=== PATIENT | female | born 1995 | race Caucasian/White ===

== ENCOUNTER 2016-07-28 11:53 | Emergency (ER) | payer BC ==
[2016-07-28 12:56] LABS: COLOR YELLOW; LEUKOCYTE ESTERASE,URINE NEGATIVE (NEGATIVE); NITRITE,URINE NEGATIVE (NEGATIVE)
[2016-07-28 12:59] LABS: MUCUS TRACE /lpf (NONE-1+)
--- NOTE | 2016-07-28 13:08 | EDPHY ---
H & P Stated Complaint: Intermittent left neck pain, chest pain, SOB for 2 weeks. Time Seen by Provider: 07/28/16 12:37 HPI/ROS: CHIEF COMPLAINT: Left upper quadrant abdominal and left lower rib pain HISTORY OF PRESENT ILLNESS: 21-year-old female history of oral contraceptive use, smokes cigarettes on a weekly basis, complaining of flu-like symptoms for weeks ago which resolved however for the past 2 weeks she has been experiencing dyspnea, pleuritic left-sided chest pain, today started complaining of more localized left lower rib/left upper quadrant abdominal pain with continued complaints of dyspnea. No syncope or near syncope. No peripheral edema. Patient is concerned about pulmonary embolus. PRIMARY CARE PROVIDER: Surinder REVIEW OF SYSTEMS: A ten point review of systems was performed and is negative with the exception of the items mentioned in the HPI PAST MEDICAL & SURGICAL HISTORY: Daily oral contraceptive use. SOCIAL HISTORY: [employer] Student. Regular cigarette use PHYSICAL EXAM (Prior to examination, patient consented to physical exam, hands were washed and my usual and customary physical exam procedures followed) 1) GENERAL: Well-developed, well-nourished, alert and oriented. Appears anxious. Speaking full sentences 2) HEAD: Normocephalic, atraumatic 3) HEENT: Pupils equal, round, reactive to light bilaterally. Sclera anicteric. 4) NECK: Full range of motion, no meningeal signs. 5) LUNGS: Clear auscultation bilaterally, no wheezes, no rhonchi, no retractions. 6) HEART: Regular rate and rhythm, no murmur, no heave, no gallop. 7) ABDOMEN: No guarding, tender to palpation epigastrium and left upper quadrant , no rebound, no focal tenderness, negative McBurney's, negative Solis's, negative Rovsing's, negative peritoneal sign, 8) MUSCULOSKELETAL: Moving all extremities, no focal areas of tenderness, no obvious trauma. No peripheral edema or discoloration. Negative Homans no palpable cord 9) BACK: No CVA tenderness, no midline vertebral tenderness, no fluctuance, no step-off, no obvious trauma, no visual or palpable abnormality. 10) SKIN: No rash, no petechiae. 11) Psychiatric: Patient is oriented X 3, there is no agitation. DIFFERENTIAL DIAGNOSIS: in no particular order including but limited to pancreatitis, splenomegaly, lower lobe pneumonia, pulmonary embolus, peptic ulcer disease - Personal History LMP (Females 10-55): 1-7 Days Ago Current Tetanus Diphtheria and Acellular Pertussis (TDAP): Yes Tetanus Vaccine Date: within last 10 years - Medical/Surgical History Hx Asthma: No Hx Chronic Respiratory Disease: No Hx Diabetes: No Hx Cardiac Disease: No Hx Renal Disease: No Hx Cirrhosis: No Hx Alcoholism: No Hx HIV/AIDS: No Hx Splenectomy or Spleen Trauma: No Other PMH: polycystic ovarian disease, kidney stones, appy 09/14/14 - Social History Smoking Status: Current some day smoker Constitutional: Initial Vital Signs Temperature (C) 36.4 C 07/28/16 11:59 Heart Rate 107 H 07/28/16 11:59 Respiratory Rate 18 07/28/16 11:59 Blood Pressure 149/90 H 07/28/16 11:59 O2 Sat (%) 98 07/28/16 11:59 O2 Delivery Mode Room Air Allergies/Adverse Reactions: [place] Allergy (Verified 02/10/16 12:55) Home Medications: Medication Instructions Recorded VYVANSE 02/10/16 Amphetamine 07/28/16 Pantoprazole Sodium [Protonix 40mg 40 mg PO DAILY #30 tab 07/28/16 (RX)] Medical Decision Making - Diagnostics Imaging: CT Chest Angiogram Comparison: 14 Sep 2014 Indication: Chest pain. Evaluate for pulmonary embolus. Technique: Thinly collimated multidetector helical CT imaging was performed through the chest while 80 mL of Isovue-370 were injected intravenously without complication. The images were then transferred to an independent workstation where multiplanar reconstructions were performed. Dose reduction techniques were utilized. Findings: CT Chest Angiogram: The pulmonary arterial system is well opacified. No intraluminal filling defects to suggest acute or chronic thrombopulmonary embolic disease. The thoracic aorta is normal caliber. No aneurysm or dissection. CT Chest: The lungs are clear. No pulmonary nodule, mass, or enlarged lymph nodes. Heart size is normal. No pericardial or pleural effusion. The imaged portion of the upper abdomen is negative. Impression: 1. No evidence of thrombopulmonary embolic disease. 2. No evidence for acute cardiopulmonary abnormality. Results called and discussed with Philippe Hunt PA-C at 07/28/2016 14:37. Dictated By: Edwin Villalpando MD Images reviewed by myself ED Course/Re-evaluation: 1:45 p.m.: We discussed her negative D-dimer however given her history of pleuritic chest pain, dyspnea, exogenous estrogen use, cigarette use, expressed the patient my concern over possible pulmonary embolus. Indications risks benefits discussed with patient she verbalized consent. 2:30 p.m.: This patient was re-evaluated with serial examinations, most recent at this time. Discussed with the patient her negative CT scan showing no pulmonary emboli. Discussed her elevated lipase of 414. She notes an increase in alcohol use over the past several days as it is currently spring. She is tolerating oral intake. Do not think that admission for acute pancreatitis is indicated at this time however I did recommend alcohol cessation and follow up with primary care and gastroenterology. Definitely in the meantime should she develop new or worsening abdominal pain, should she develop inability to tolerate oral intake baig is to return to the emergency department immediately for re-evaluation. Doubt acute surgical abdominal pathology such as acute cholecystitis, acute appendicitis as she is no pain in the right upper quadrant or right lower quadrant no peritoneal sign on initial and on serial exams. She feels comfortable with this plan. - Data Points Laboratory Results: Laboratory Results 07/28/16 13:00 07/28/16 13:00 07/28/16 07/28/16 07/28/16 13:00 13:00 13:00 WBC RBC Hgb Hct MCV MCH MCHC RDW Plt Count MPV Neut % (Auto) Lymph % (Auto) [place] % (Auto) Eos % (Auto) Baso % (Auto) Nucleat RBC Rel Count Absolute Neuts (auto) Absolute Lymphs (auto) Absolute Monos (auto) Absolute Eos (auto) Absolute Basos (auto) Absolute Nucleated RBC Immature Gran % Immature Gran # D-Dimer < 0.27 ug/mLFEU ug/mLFEU (0.00-0.50) Sodium 138 mEq/L mEq/L (134-144) Potassium 4.2 mEq/L mEq/L (3.5-5.2) Chloride 101 mEq/L mEq/L (97-110) Carbon Dioxide 23 mEq/l mEq/l (22-31) Anion Gap 14 mEq/L mEq/L (8-16) BUN 16 mg/dL mg/dL (7-23) Creatinine 0.8 mg/dL mg/dL (0.6-1.0) Estimated GFR > 60 Glucose 76 mg/dL mg/dL (70-100) Calcium 10.1 mg/dL mg/dL (8.5-10.4) Total Bilirubin 1.3 mg/dL mg/dL (0.1-1.4) Conjugated Bilirubin 0.4 mg/dL mg/dL (0.0-0.5) Unconjugated Bilirubin 0.9 mg/dL mg/dL (0.0-1.1) AST 27 IU/L IU/L (14-46) ALT 31 IU/L IU/L (9-52) Alkaline Phosphatase 58 IU/L IU/L (38-126) Total Protein 9.1 g/dL H g/dL (6.3-8.2) Albumin 5.2 g/dL H g/dL (3.5-5.0) Lipase 414.0 IU/L H IU/L (23-300) Beta HCG, Qual NEGATIVE Urine Color Urine Appearance Urine pH Ur Specific [place] Urine Protein Urine Ketones Urine Blood Urine Nitrate Urine Bilirubin Urine Urobilinogen Ur Leukocyte Esterase Urine RBC Urine WBC Ur Epithelial Cells Ur Renal Epithelial Cell Urine Crystals Ammonium Urate Crystals Calcium Carbonate Cryst Calcium Phosphate Cryst Calcium Oxalate Crystal Leucine Crystals Cystine Crystals Uric Acid Crystals Triple Phos Crystals Sulfonamide Crystals Cholesterol Crystals Tyrosine Crystals Bilirubin Crystals Amorphous Sediment Urine Bacteria Epithelial Casts Fatty Casts Hyaline Casts Granular Casts Waxy Casts Broad Casts RBC Casts WBC Casts Urine Mucus Urine Trichomonas Urine Yeast Urine Sperm Ur Oval Fat Bodies Ur Free Fat Droplets Urine Glucose Urine Comment 07/28/16 07/28/16 07/28/16 13:00 12:40 12:40 WBC 5.89 10^3/uL 10^3/uL (3.80-9.50) RBC 5.01 10^6/uL 10^6/uL (4.18-5.33) Hgb 15.8 g/dL g/dL (12.6-16.3) Hct 45.4 % % (38.0-47.0) MCV 90.6 fL fL (81.5-99.8) MCH 31.5 pg pg (27.9-34.1) MCHC 34.8 g/dL g/dL (32.4-36.7) RDW 11.6 % % (11.5-15.2) Plt Count 180 10^3/uL 10^3/uL (150-400) MPV 12.0 fL H fL (8.7-11.7) Neut % (Auto) 58.4 % % (39.3-74.2) Lymph % (Auto) 33.1 % % (15.0-45.0) [place] % (Auto) 5.8 % % (4.5-13.0) Eos % (Auto) 1.9 % % (0.6-7.6) Baso % (Auto) 0.5 % % (0.3-1.7) Nucleat RBC Rel Count 0.0 % % (0.0-0.2) Absolute Neuts (auto) 3.44 10^3/uL 10^3/uL (1.70-6.50) Absolute Lymphs (auto) 1.95 10^3/uL 10^3/uL (1.00-3.00) Absolute Monos (auto) 0.34 10^3/uL 10^3/uL (0.30-0.80) Absolute Eos (auto) 0.11 10^3/uL 10^3/uL (0.03-0.40) Absolute Basos (auto) 0.03 10^3/uL 10^3/uL (0.02-0.10) Absolute Nucleated RBC 0.00 10^3/uL 10^3/uL (0-0.01) Immature Gran % 0.3 % % (0.0-1.1) Immature Gran # 0.02 10^3/uL 10^3/uL (0.00-0.10) D-Dimer Sodium Potassium Chloride Carbon Dioxide Anion Gap BUN Creatinine Estimated GFR Glucose Calcium Total Bilirubin Conjugated Bilirubin Unconjugated Bilirubin AST ALT Alkaline Phosphatase Total Protein Albumin Lipase Beta HCG, Qual Urine Color YELLOW Urine Appearance CLEAR Urine pH 6.0 (5.0-7.5) Ur Specific [place] 1.019 (1.002-1.030) Urine Protein NEGATIVE (NEGATIVE) Urine Ketones TRACE H (NEGATIVE) Urine Blood NEGATIVE (NEGATIVE) Urine Nitrate NEGATIVE (NEGATIVE) Urine Bilirubin NEGATIVE (NEGATIVE) Urine Urobilinogen NEGATIVE EU EU (0.2-1.0) Ur Leukocyte Esterase NEGATIVE (NEGATIVE) Urine RBC Cancelled 3-5 /hpf H /hpf (0-3) Urine WBC Cancelled 1-3 /hpf /hpf (0-3) Ur Epithelial Cells Cancelled TRACE /lpf /lpf (NONE-1+) Ur Renal Epithelial Cell Cancelled Urine Crystals Cancelled Ammonium Urate Crystals Cancelled Calcium Carbonate Cryst Cancelled Calcium Phosphate Cryst Cancelled Calcium Oxalate Crystal Cancelled Leucine Crystals Cancelled Cystine Crystals Cancelled Uric Acid Crystals Cancelled Triple Phos Crystals Cancelled Sulfonamide Crystals Cancelled Cholesterol Crystals Cancelled Tyrosine Crystals Cancelled Bilirubin Crystals Cancelled Amorphous Sediment Cancelled Urine Bacteria Cancelled Epithelial Casts Cancelled Fatty Casts Cancelled Hyaline Casts Cancelled Granular Casts Cancelled Waxy Casts Cancelled Broad Casts Cancelled RBC Casts Cancelled WBC Casts Cancelled Urine Mucus Cancelled TRACE /lpf /lpf (NONE-1+) Urine Trichomonas Cancelled Urine Yeast Cancelled Urine Sperm Cancelled Ur Oval Fat Bodies Cancelled Ur Free Fat Droplets Cancelled Urine Glucose NEGATIVE (NEGATIVE) Urine Comment Cancelled Medications Given: Discontinued Medications Al Hydroxide/Mg Hydroxide (Maalox Susp) 30 ml PO ONCE ONE Stop: 07/28/16 14:54 Last Admin: 07/28/16 15:18 Dose: 30 ml Hyoscyamine Sulfate (Levsin, Hyomax-Sl) 0.25 mg PO ONCE ONE Stop: 07/28/16 14:54 Last Admin: 07/28/16 15:18 Dose: 0.25 mg Lidocaine (Lidocaine 2% Viscous) 15 ml PO ONCE ONE Stop: 07/28/16 14:54 Last Admin: 07/28/16 15:18 Dose: 15 ml Morphine Sulfate (Morphine) 4 mg IVP EDNOW ONE Stop: 07/28/16 13:51 Last Admin: 07/28/16 14:32 Dose: 4 mg Departure - Departure Disposition: Home, Routine, Self-Care Clinical Impression: Elevated lipase, Epigastric abdominal pain Condition: Good Instructions: Pancreatitis (ED), Epigastric Pain (ED) Additional Instructions: Seek immediate medical attention if you develop new or worsening symptoms, if you develop fevers, chills, inability to tolerate oral intake or any other symptoms that concerns you. Your lipase level was elevated today which may be result of increase in alcohol use. Temporarily Stop drinking alcohol and exercise caution and moderation in the future. Recommend you recheck your lipase level as directed in the discharge instructions . If at any point you are unable to tolerate oral intake you need to return to the ER immediately for re-evaluation Referrals: SURINDER Minaya,. [Clinic] - 1-2 days without fail (Your lipase blood test was elevated today at 414. Recommend temporary cessation and future with alcohol and retesting of your lipase level.) Tim Womack MD [Medical Doctor] - 5-7 days, call for appt. (Dr. Tim Womack is a furniture repairer) Prescriptions: Pantoprazole Sodium [Protonix 40mg (RX)] 40 mg PO DAILY #30 tab
[2016-07-28 13:16] LABS: % IMMATURE GRANULYOCYTES 0.3 % (0.0-1.1); ABSOLUTE IMMATURE GRANULOCYTES 0.02 10^3/uL (0.00-0.10); ADD DIFF? NO; ADD MORPH? NO; ADD SCAN? NO; ATYPICAL LYMPHOCYTE FLAG 30 (0-99); FRAGMENT RBC FLAG 0 (0-99); HEMATOCRIT 45.4 % (38.0-47.0); HEMOGLOBIN 15.8 g/dL (12.6-16.3); LEFT SHIFT FLG 0 (0-99); LIPEMIA HEMOLYSIS FLAG 90 (0-99); MEAN CELL HEMOGLOBIN 31.5 pg (27.9-34.1); MEAN CELL HEMOGLOBIN CONCENTR. 34.8 g/dL (32.4-36.7); MEAN CELL VOLUME 90.6 fL (81.5-99.8); PLATELET CLUMPS FLAG 0 (0-99); PLATELET COUNT 180 10^3/uL (150-400); RED BLOOD CELL COUNT 5.01 10^6/uL (4.18-5.33); RED CELL DISTRIBUTION WIDTH 11.6 % (11.5-15.2)
[2016-07-28 13:29] LABS: ALANINE AMINOTRANSFERASE 31 IU/L (9-52); ALBUMIN 5.2 g/dL (3.5-5.0); ALKALINE PHOSPHATASE 58 IU/L (38-126); ANION GAP 14 mEq/L (8-16); ASPARTATE AMINOTRANSFERASE 27 IU/L (14-46); BILIRUBIN,TOTAL 1.3 mg/dL (0.1-1.4); BILIRUBIN-CONJUGATED 0.4 mg/dL (0.0-0.5); BILIRUBIN-UNCONJUGATED 0.9 mg/dL (0.0-1.1); CALCIUM 10.1 mg/dL (8.5-10.4); CARBON DIOXIDE 23 mEq/l (22-31); CHLORIDE 101 mEq/L (97-110); CREATININE 0.8 mg/dL (0.6-1.0); GLOMERULAR FILTRATION RATE > 60; GLUCOSE 76 mg/dL (70-100); POTASSIUM 4.2 mEq/L (3.5-5.2); SODIUM 138 mEq/L (134-144); TOTAL PROTEIN 9.1 g/dL (6.3-8.2)
[2016-07-28] MEDS ORDERED: IOPAMIDOL (ISOVUE 370) 100 ML BTL IV ONE (13:54)
[2016-07-28 14:34] VITALS: O2SAT 99
[2016-07-28] MEDS ORDERED: MAG HYDROX/AL HYDROX/SIMETH 30 ML UDCUP PO ONE (14:53)
[2016-07-28] MEDS ORDERED: LIDOCAINE 2% VISCOUS 15 ML UDCUP PO ONE (14:53)
[2016-07-28] MEDS ORDERED: HYOSCYAMINE SULFATE 0.125 MG TAB PO ONE (14:53)
[2016-07-28 15:58] VITALS: BP 110/67; PULSE 66; RESP 16; TEMP 98.4
== END 2016-07-28 15:58 | disposition home or self-care (01) ==
DX: R10.13 Epigastric pain (principal); R74.8 Abnormal levels of other serum enzymes; F17.200 Nicotine dependence, unspecified, uncomplicated
CPT/HCPCS: 96374; Q9967

== ENCOUNTER 2018-02-08 13:57 | Emergency (ER) | payer BC ==
--- NOTE | 2018-02-08 14:35 | EDPHY ---
H & P Time Seen by Provider: 02/08/18 14:26 HPI/ROS: HPI Abdominal pain, constipation. 22-year-old female by private vehicle. She reports that she has had constipation for the last 2 weeks in no significant bowel movement at that time. She reports intermittent pellets of with diarrhea. She reports worsening right and mid lower abdominal pain ongoing for about a week now. She has had an appendectomy in the past. She denies urinary tract infection symptoms but has had a history of frequent urinary tract infections. Last menstrual period ended about a week ago. She describes the pain as intermittent and cramping to the area noted above. No vomiting. No bloody or melenic stool. ROS: Constitutional: No fever, no chills. No weakness. Respiratory: No cough. No shortness of breath. Cardiac: No chest pain, no palpitations. Gastrointestinal: As above, no vomiting. Genitourinary: No hematuria. No dysuria or increased frequency with urination. No vaginal bleeding. No vaginal discharge. Musculoskeletal: No back pain. No neck pain. No myalgias or arthralgias. Skin: No rashes. Neurological: No headache. No focal weakness or altered sensation. Past medical history: Polycystic ovarian disease, kidney stones, appendectomy, depression, attention deficit hyperactivity disorder. Social history: Nonsmoker. No alcohol. She is a student [employer]. Here by herself. Physical Exam: General Appearance: Alert, no distress. This patient is responding to questions appropriately and in full sentences. This patient appears well- hydrated and well-nourished. Eyes: Pupils equal and round no pallor or injection. No lid edema, erythema or injection. Respiratory: There are no retractions, lungs are clear to auscultation with good air movement bilaterally. Cardiovascular: Regular rate and rhythm. No murmur. Gastrointestinal: Abdomen is soft and without significant tenderness on deep palpation throughout, no masses, bowel sounds normal. No focal tenderness at McBurney's point. No Solis sign. Neurological: Motor sensory function is grossly intact. Cranial nerves are normal. Gait is normal. Skin: Warm and dry, no rashes. Musculoskeletal: Neck is supple and nontender. Extremities are symmetrical. All joints range without pain or impingement. Psychiatric: No agitation. No depression. Database: EKG: Imaging: Upright abdominal x-ray: Significant for constipation. No free air. No obstructive pattern noted. Interpreted by me. Procedures: Emergency department course: Triage vital signs reviewed and are normal. Patient's presentation is consistent with constipation. Upright abdominal x-ray and urinalysis and urine to be obtained. 3:00 p.m., the patient was re-evaluated. Resting comfortably at this time. Repeat abdominal exam she is soft, nontender nondistended. Results of her x- ray discussed. I discussed treatment options for constipation. At this time I will send her home with magnesium citrate. If she does not have success with this I will also write her a prescription for a 1/2 prep of GoLYTELY in addition. She has been instructed to follow up with her primary care physician for re-evaluation in 1-2 days. Return to emergency department precautions were thoroughly reviewed with her. All of her questions were answered. She was discharged from the emergency department in good condition. Differential Diagnosis: The differential diagnosis on this patient includes but is not limited to constipation. Appendicitis, ovarian torsion, bowel obstruction, volvulus, ruptured ovarian cyst, ectopic , urinary tract infection unlikely. This represents a partial list of diagnoses considered. These considerations are based on history, physical exam, past history, reassessment and diagnostic testing. Smoking Status: Current some day smoker Constitutional: Initial Vital Signs Temperature (C) 37.0 C 02/08/18 14:15 Heart Rate 95 02/08/18 14:15 Respiratory Rate 18 02/08/18 14:15 Blood Pressure 115/86 H 02/08/18 14:15 O2 Sat (%) 99 02/08/18 14:15 O2 Delivery Mode Room Air Allergies/Adverse Reactions: [place] Allergy (Verified 02/08/18 14:14) Home Medications: Medication Instructions Recorded VYVANSE 02/10/16 Amphetamine 07/28/16 Pantoprazole Sodium [Protonix 40mg 40 mg PO DAILY #30 tab 07/28/16 (RX)] Peg 3350/Na Sulf,Bicarb,Cl/KCl 4,000 ml PO ONCE #1 btl 02/08/18 [Golytely (RX)] Wellbutrin Sr 02/08/18 Medical Decision Making - Diagnostics Imaging Results: Imaging Impressions Abdomen X-Ray 02/08/18 14:31 Impression: Constipation. - Data Points Medications Given: Discontinued Medications Magnesium Citrate (Magnesium Citrate) 300 ml PO ONCE ONE Stop: 02/08/18 15:14 Last Admin: 02/08/18 15:18 Dose: 300 ml Departure - Departure Disposition: Home, Routine, Self-Care Clinical Impression: Constipation Condition: Good Instructions: Constipation (ED), High Fiber Diet (ED) Additional Instructions: Read and follow provided instructions. Follow-up with your primary care physician in 1-2 days for re-evaluation. Take medication as prescribed. Drink contents at home near a bathroom. 1/2 GoLYTELY prep to be reserved in case you do not have significant results with magnesium citrate which was given to you in the emergency department. Return to the emergency department for worsening symptoms, vomiting, fever, worsening abdominal pain or other serious concerns. Referrals: FRANCO BRIAN [Primary Care Provider] - As per Instructions Prescriptions: Peg 3350/Na Sulf,Bicarb,Cl/KCl [Golytely (RX)] 4,000 ml PO ONCE #1 btl
[2018-02-08] MEDS ORDERED: MAGNESIUM CITRATE 300 ML BOTTLE PO ONE (15:13)
[2018-02-08 15:23] VITALS: BP 123/66
== END 2018-02-08 15:21 | disposition home or self-care (01) ==
DX: K59.00 Constipation, unspecified (principal); Z87.442 Personal history of urinary calculi; Z87.42 Personal history of other diseases of the female genital tract; Q42.3 Congenital absence, atresia and stenosis of anus without fistula

== ENCOUNTER 2018-04-11 12:17 | Emergency (ER) | payer BC ==
[2018-04-11 12:27] VITALS: BP 137/80
== END 2018-04-11 12:40 | disposition left against medical advice (07) ==
DX: Z53.21 Procedure and treatment not carried out due to patient leaving prior to being seen by health care provider (principal)

== ENCOUNTER 2018-07-17 02:40 | Emergency (ER) | payer BC ==
[2018-07-17] MEDS ORDERED: NS 1,000 ML IV ONE ×3 (02:50→04:01)
[2018-07-17] MEDS ORDERED: ONDANSETRON 4 MG/2 ML VIAL IVP ONE ×2 (02:50→03:59)
[2018-07-17 03:09] LABS: PLATELET COUNT 209 10^3/uL (150-400)
--- NOTE | 2018-07-17 03:58 | EDPHY ---
H & P Stated Complaint: NVD Time Seen by Provider: 07/17/18 03:55 HPI/ROS: HPI The patient presents with nausea, vomiting, diarrhea which began this morning at about 2:00 a.m.. When she went to bed last night she was feeling well. She awoke early this morning with nausea which was then followed by multiple episodes of nonbloody nonbilious emesis. She then had several episodes of watery diarrhea. She is also complaining of chills. She walked to the bathroom to throw up and became lightheaded and had an episode of dizziness though did not lose consciousness completely. Her boyfriend had a similar illness recently. A friend was in the emergency department yesterday and diagnosed with viral gastroenteritis.. REVIEW OF SYSTEMS 10 systems were reviewed and negative with the exception of the elements mentioned in the history of present illness. PMHx: PCOS, status post appendectomy in 2014 Soc Hx: Here with her boyfriend, nonsmoker PHYSICAL General Appearance: Alert, no distress Eyes: Pupils equal and round no pallor or injection ENT, Mouth: Mucous membranes moist Respiratory: There are no retractions, lungs are clear to auscultation Cardiovascular: Regular rate and rhythm Gastrointestinal: Abdomen is soft and non-tender, no masses, bowel sounds normal Neurological: A&O, moves all extremities Skin: Warm and dry, no rashes Musculoskeletal: Neck is supple non tender Extremities: symmetrical, full range of motion Psychiatric: Patient is oriented X 3, there is no agitation Source: Patient Exam Limitations: No limitations - Personal History LMP (Females 10-55): 8-14 Days Ago Current Tetanus Diphtheria and Acellular Pertussis (TDAP): Yes Tetanus Vaccine Date: within last 10 years - Medical/Surgical History Hx Asthma: No Hx Chronic Respiratory Disease: No Hx Diabetes: No Hx Cardiac Disease: No Hx Renal Disease: No Hx Cirrhosis: No Hx Alcoholism: No Hx HIV/AIDS: No Hx Splenectomy or Spleen Trauma: No Other PMH: polycystic ovarian disease, kidney stones, appy 09/14/14. depression - Social History Smoking Status: Current some day smoker Constitutional: Initial Vital Signs Temperature (C) 35.5 C L 07/17/18 02:47 Heart Rate 104 H 07/17/18 02:47 Respiratory Rate 18 07/17/18 02:47 Blood Pressure 102/81 H 07/17/18 02:47 O2 Sat (%) 98 07/17/18 02:47 O2 Delivery Mode Room Air Allergies/Adverse Reactions: [place] Allergy (Verified 07/17/18 02:47) Home Medications: Medication Instructions Recorded VYVANSE 02/10/16 Amphetamine 07/28/16 Wellbutrin Sr 02/08/18 Carmen 28 Tablet 04/11/18 Ambien 07/17/18 Ondansetron Odt [Zofran Odt 4 mg 4 mg PO Q4 PRN #10 tab 07/17/18 (*)] Medical Decision Making Differential Diagnosis: 23-year-old female presents with several hours of nausea, vomiting, diarrhea and episode of what sounds to be presyncope. Here, she is tachycardic, slightly hypothermic. Her abdominal exam is benign. Suspect viral gastroenteritis though it also consider toxin mediated enterocolitis or colitis. Patient received 2 L of IV fluid, Zofran, basic labs were checked and were unremarkable. She felt better after the above treatment. She was able to tolerate p. O. Challenge and was discharged home. - Data Points Laboratory Results: Laboratory Results 07/17/18 03:00 07/17/18 03:00 07/17/18 07/17/18 07/17/18 03:00 03:00 03:00 WBC 11.82 10^3/uL H 10^3/uL (3.80-9.50) RBC 4.93 10^6/uL 10^6/uL (4.18-5.33) Hgb 15.5 g/dL g/dL (12.6-16.3) Hct 43.5 % % (38.0-47.0) MCV 88.2 fL fL (81.5-99.8) MCH 31.4 pg pg (27.9-34.1) MCHC 35.6 g/dL g/dL (32.4-36.7) RDW 11.7 % % (11.5-15.2) Plt Count 209 10^3/uL 10^3/uL (150-400) MPV 11.9 fL H fL (8.7-11.7) Neut % (Auto) 79.3 % H % (39.3-74.2) Lymph % (Auto) 14.0 % L % (15.0-45.0) [place] % (Auto) 4.6 % % (4.5-13.0) Eos % (Auto) 1.4 % % (0.6-7.6) Baso % (Auto) 0.2 % L % (0.3-1.7) Nucleat RBC Rel Count 0.0 % % (0.0-0.2) Absolute Neuts (auto) 9.38 10^3/uL H 10^3/uL (1.70-6.50) Absolute Lymphs (auto) 1.66 10^3/uL 10^3/uL (1.00-3.00) Absolute Monos (auto) 0.54 10^3/uL 10^3/uL (0.30-0.80) Absolute Eos (auto) 0.16 10^3/uL 10^3/uL (0.03-0.40) Absolute Basos (auto) 0.02 10^3/uL 10^3/uL (0.02-0.10) Absolute Nucleated RBC 0.00 10^3/uL 10^3/uL (0-0.01) Immature Gran % 0.5 % % (0.0-1.1) Immature Gran # 0.06 10^3/uL 10^3/uL (0.00-0.10) Sodium 138 mEq/L mEq/L (135-145) Potassium 4.0 mEq/L mEq/L (3.5-5.2) Chloride 105 mEq/L mEq/L (97-110) Carbon Dioxide 19 mEq/l L mEq/l (22-31) Anion Gap 14 mEq/L mEq/L (6-14) BUN 15 mg/dL mg/dL (7-23) Creatinine 0.8 mg/dL mg/dL (0.6-1.0) Estimated GFR > 60 Glucose 105 mg/dL H mg/dL (70-100) Calcium 9.4 mg/dL mg/dL (8.5-10.4) Beta HCG, Qual NEGATIVE Medications Given: Discontinued Medications Sodium Chloride (Ns) 1,000 mls @ 0 mls/hr IV ONCE ONE; Wide Open PRN Reason: Protocol Stop: 07/17/18 02:51 Last Admin: 07/17/18 02:54 Dose: 1,000 mls Sodium Chloride (Ns) 1,000 mls @ 0 mls/hr IV ONCE ONE; Wide Open PRN Reason: Protocol Stop: 07/17/18 02:51 Last Admin: 07/17/18 02:54 Dose: 1,000 mls Sodium Chloride (Ns) 1,000 mls @ 0 mls/hr IV EDNOW ONE; Wide Open PRN Reason: Protocol Stop: 07/17/18 04:02 Last Admin: 07/17/18 04:05 Dose: 1,000 mls Ondansetron HCl (Zofran) 4 mg IVP EDNOW ONE Stop: 07/17/18 02:51 Last Admin: 07/17/18 02:54 Dose: 4 mg Ondansetron HCl (Zofran) 4 mg IVP EDNOW ONE Stop: 07/17/18 04:00 Last Admin: 07/17/18 04:05 Dose: 4 mg Ondansetron HCl (Zofran Odt 4 Mg Prepack#2) 1 btl TAKEHOME EDNOW ONE Stop: 07/17/18 04:00 Last Admin: 07/17/18 04:05 Dose: 1 btl Departure - Departure Disposition: Home, Routine, Self-Care Clinical Impression: Nausea vomiting and diarrhea Condition: Good Instructions: Ondansetron (By mouth), Dehydration (ED), Gastroenteritis (ED) Additional Instructions: Please return to the emergency department if you are worse in any way. Referrals: Marie Romeo MD [Medical Doctor] - As per Instructions Prescriptions: Ondansetron Odt [Zofran Odt 4 mg (*)] 4 mg PO Q4 PRN #10 tab PRN Reason: Nausea/Vomiting, Can'T Take Po
[2018-07-17] MEDS ORDERED: ONDANSETRON 4MG PREPACK#2 BTL TAKEHOME ONE (03:59)
[2018-07-17 04:52] VITALS: BP 115/73
== END 2018-07-17 04:57 | disposition home or self-care (01) ==
DX: R11.2 Nausea with vomiting, unspecified (principal); R19.7 Diarrhea, unspecified; E86.9 Volume depletion, unspecified; Z87.442 Personal history of urinary calculi
CPT/HCPCS: 96374; J2405